=== PATIENT | male | born 1980 | race Caucasian/White ===

== ENCOUNTER 2016-07-23 17:23 | Emergency (ER) | payer OTHER ==
[2016-07-23 17:30] VITALS: BP 164/95; PULSE 66; TEMP 97.6; BMI 29.5
[2016-07-23] MEDS ORDERED: AMOXICILLIN 250 MG CAPSULE PO ONE (18:07)
[2016-07-23] MEDS ORDERED: OXYCODONE/APAP 5/325MG COMBO TABLET PO ONE (18:07)
[2016-07-23] MEDS ORDERED: AMOXICILLIN 250 MG CAPSULE ONE (18:12)
[2016-07-23] MEDS ORDERED: OXYCODONE/APAP 5/325MG COMBO TABLET ONE (18:13)
--- NOTE | 2016-07-23 18:15 | PDOC ---
History of Present Illness - General Chief Complaint: Pain Stated Complaint: ABCESS/TOOTHACHE/NECK PAIN Time Seen by Provider: 07/23/16 17:39 History Source: Patient Exam Limitations: No Limitations - History of Present Illness Initial Comments: 07/23/16 18:08 reoccurring pain to fracture tooth; has dentist appt next Tuesday Timing/Duration: getting worse Severity: moderate Associated Symptoms: denies: cough Past History - Past Medical History Allergies/Adverse Reactions: Allergies Allergy/AdvReac Type Severity Reaction Status Date / Time shellfish derived AdvReac Verified 07/23/16 17:27 Home Medications: Ambulatory Orders NK [No Known Home Medication] 07/23/16 Suicide Attempt (Hx): No Other medical history: NECK AND BACK PAIN - Immunization History Immunization Up to Date: Yes - Psycho/Social/Smoking Cessation Hx Anxiety: No Suicidal Ideation: No Smoking Status: Yes Smoking History: Current some day smoker Have you smoked in the past 12 months: Yes Number of Cigarettes Smoked Daily: 4 If you are a former smoker, when did you quit?: 06/2013 Cigars Per Day: 0 Information on smoking cessation initiated: Yes 'Breaking Loose' booklet given: 07/23/16 Hx Alcohol Use: No Drug/Substance Use Hx: No Substance Use Type: None Review of Systems - Review of Systems Constitutional: Yes: Malaise. No: Chills, Fever HEENTM: Yes: Dental Problems Respiratory: No: Symptoms reported, Cough Cardiac (ROS): No: Symptoms Reported *Physical Exam - Vital Signs Last Vital Signs Temp Pulse Resp BP Pulse Ox 97.6 F 66 18 164/95 100 07/23/16 17:28 07/23/16 17:28 07/23/16 17:28 07/23/16 17:28 07/23/16 17:28 - Physical Exam General Appearance: Yes: Appropriately Dressed. No: Apparent Distress HEENT: positive: TMs Normal, Pharynx Normal, Other (partial fracture #19 with gumline tenderness no fluct.). negative: Tonsillar Exudate Medical Decision Making - Medical Decision Making 07/23/16 18:11 will not prescribe OP narcotics; wiil start with amox and 1 dose percocet here and refer to dental clinic at [facility] *DC/Admit/Observation/Transfer Diagnosis at time of Disposition: Toothache, Dental caries, Dental decay - Discharge Dispostion Disposition: HOME Condition at time of disposition: Stable Admit: No - Patient Instructions Additional Instructions: please see dentist at [facility] on Tuesday clinic; take meds
== END 2016-07-23 18:20 | disposition home or self-care (01) ==
LOC: JERFT 17:23
DX: K02.9 Dental caries, unspecified (principal)
CPT/HCPCS: 99281-25

== ENCOUNTER 2016-10-02 04:39 | Emergency (ER) | payer OTHER ==
[2016-10-02 04:59] VITALS: BP 162/93; PULSE 76; TEMP 97.8; BMI 28.3
[2016-10-02] MEDS ORDERED: FLUORESCEIN NA 1 EA STRIP OS ONE (05:46)
[2016-10-02] MEDS ORDERED: TETRACAINE 0.5% HCL 0.6ML DROPPER.BOTTLE OS ONE (05:46)
[2016-10-02] MEDS ORDERED: FLUORESCEIN NA 1 EA STRIP ONE (05:50)
[2016-10-02] MEDS ORDERED: TETRACAINE 0.5% OPHTH SOLN 2 ML BOTTLE ONE (05:51)
[2016-10-02] MEDS ORDERED: CIPROFLOXACIN 0.3% EYE DROPS 5 ML BOTTLE OS ONE (05:57)
[2016-10-02] MEDS ORDERED: CIPROFLOXACIN HCL 0.3% OPHTH 2.5ML BOTTLE ONE (06:00)
--- NOTE | 2016-10-02 06:00 | PDOC ---
History of Present Illness - General Chief Complaint: Foreign Body (FB) Stated Complaint: FORIEGN BODY/LEFT EYE Time Seen by Provider: 10/02/16 05:46 History Source: Patient Exam Limitations: No Limitations - History of Present Illness Initial Comments: 10/02/16 05:57 36yo Male patient presents to ED c/o foreign body in left eye. Patient states while at work, he was throwing garbage out when dust or metal got into his eye. Patient reports irrigating eye with water for 10 mins but felt no relief. He reports hx: of metal in eye. Tetanus up to date. Patient reports he was wearing protective goggles when incident occurred. Denies any other complaints at this time. Timing/Duration: 1-3 hours Severity: moderate Modifying Factors: improves with: cold therapy Associated Symptoms: denies: denies symptoms, chest pain, cough, diaphoresis, fever/chills, headaches, loss of appetite, malaise, nausea/vomiting, rash, seizure, shortness of breath, syncope, weakness, other Past History - Travel Traveled outside of the country in the last 30 days: No Close contact w/someone who was outside of country & ill: No - Past Medical History Allergies/Adverse Reactions: Allergies Allergy/AdvReac Type Severity Reaction Status Date / Time shellfish derived AdvReac Verified 10/02/16 04:59 Home Medications: Ambulatory Orders NK [No Known Home Medication] 10/02/16 Suicide Attempt (Hx): No Other medical history: Denies - Immunization History Immunization Up to Date: Yes - Psycho/Social/Smoking Cessation Hx Anxiety: No Suicidal Ideation: No Smoking Status: Yes Smoking History: Current some day smoker Have you smoked in the past 12 months: Yes Number of Cigarettes Smoked Daily: 10 If you are a former smoker, when did you quit?: 06/2013 Cigars Per Day: 0 Information on smoking cessation initiated: Yes 'Breaking Loose' booklet given: 07/23/16 Hx Alcohol Use: No Drug/Substance Use Hx: No Substance Use Type: Alcohol Review of Systems - Review of Systems Able to Perform ROS?: Yes Is the patient limited Bhutanese proficient: No Constitutional: No: Chills, Fever HEENTM: Yes: Eye Pain, Blurred Vision, Tearing, Double Vision. No: Cataracts, Nose Congestion, Throat Pain, Throat Swelling, Difficulty Swallowing, Mouth Swelling Respiratory: No: Cough, Shortness of Breath, Stridor, Wheezing Cardiac (ROS): No: Chest Pain, Lightheadedness, Palpitations, Syncope ABD/GI: No: Diarrhea, Nausea, Vomiting All Other Systems: Reviewed and Negative *Physical Exam - Vital Signs Last Vital Signs Temp Pulse Resp BP Pulse Ox 97.8 F 76 19 162/93 100 10/02/16 04:56 10/02/16 04:56 10/02/16 04:56 10/02/16 04:56 10/02/16 04:56 - Physical Exam General Appearance: Yes: Nourished, Appropriately Dressed, Apparent Distress, Mild Distress HEENT: positive: EOMI, HEMA, Normal Voice, Symmetrical, TMs Normal, Pharynx Normal, Other (Injected left conjunctivae. 20/15 right eye, 20/25 left eye.). negative: Pharyngeal Erythema, Tonsillar Exudate, Tonsillar Erythema, TM Bulging , TM Dull, TM Erythema Neck: positive: Trachea midline, Normal Thyroid, Supple. negative: Rigid, Decreased range of motion, Stridor, Lymphadenopathy (R), Lymphadenopathy (L) Respiratory/Chest: positive: Lungs Clear, Normal Breath Sounds. negative: Chest Tender, Respiratory Distress, Accessory Muscle Use, Labored Respiration, Rapid RR Cardiovascular: positive: Regular Rhythm, Regular Rate. negative: Edema, JVD, Murmur Musculoskeletal: positive: Normal Inspection. negative: CVA Tenderness Extremity: positive: Normal Capillary Refill, Normal Inspection, Normal Range of Motion Integumentary: positive: Normal Color, Dry, Warm Neurologic: positive: lawn care specialist II-XII NML intact, Fully Oriented, Alert, Normal Mood/ Affect, Normal Response, Motor Strength 5/5 Procedures - Eye Procedure Alcaine Drops Administered: Yes Eye Irrigated w/ Saline(Mac Lens): Yes Antibiotic Oinment/Drps Admin: left eye Progress: 10/02/16 06:10 Parson lamp revealed no corneal abrasion or pupillary injury or foreign body noted. ED Treatment Course - Medications Given in the ED: ED Medications Discontinued Medications Generic Name Dose Route Start Last Admin Trade Name Freq PRN Reason Stop Dose Admin Fluorescein Sodium 1 ea 10/02/16 05:46 10/02/16 05:54 Fluorets - OS 10/02/16 05:47 1 ea ONCE ONE Administration Tetracaine HCl 2 drop 10/02/16 05:46 10/02/16 05:54 Tetravisc 0.5% Eye Drops - OS 10/02/16 05:47 2 drop ONCE ONE Administration *DC/Admit/Observation/Transfer Diagnosis at time of Disposition: Conjunctivitis Qualifiers: Conjunctivitis type: acute Acute conjunctivitis type: unspecified Laterality: left Qualified Code(s): H10.32 - Unspecified acute conjunctivitis, left eye - Discharge Dispostion Disposition: HOME Condition at time of disposition: Improved Admit: No - Referrals Referrals: Laura Mcdonough MD [Primary Care Provider] - Kory Wan MD [Staff Physician] - - Patient Instructions Printed Discharge Instructions: DI for Conjunctivitis Additional Instructions: FOLLOW UP WITH DR. WAN (OPHTHALMOLOGY) WITHIN 72 HOURS FOR FURTHER EVALUATION. ADMINISTER DROPS FOLLOWS: 2 DROPS EVERY 4 HOURS WHILE AWAKE X 2 DAYS, THEN 1 DROP EVERY 4 HOURS X 3 DAYS WHILE AWAKE. RETURN IF ANY CONCERNS FOR FURTHER EVALUATION. Print Language: KAZAKH - Post Discharge Activity Work/School Note: Back to Work
== END 2016-10-02 06:24 | disposition home or self-care (01) ==
LOC: JER 04:39 → SUPCPDRO 04:39 → JER 06:24
DX: H10.32 Unspecified acute conjunctivitis, left eye (principal)
CPT/HCPCS: 99283-25

== ENCOUNTER 2022-03-16 12:36 | Emergency (ER) | payer OTHER ==
[2022-03-16 13:05] VITALS: BP 135/90; PULSE 61; RESP 18; TEMP 97.7; BMI 30.4
[2022-03-16] MEDS ORDERED: ACETAMINOPHEN 1000 MG/100 ML BAG IVPB ONE (14:16)
[2022-03-16] MEDS ORDERED: ACETAMINOPHEN INJECTION 100 ML IVPB ONE (14:41)
[2022-03-16 14:59] LABS: INR 1.04 (0.83-1.09)
[2022-03-16 15:02] LABS: ACTIVATED PTT 23.6 SECONDS (25.2-36.5)
[2022-03-16 15:25] LABS: BASO % 0.6 % (0-2.0); EOS % 0.3 % (0-4.5); HEMATOCRIT 47.4 % (35.4-49); HEMOGLOBIN 16.1 GM/dL (11.7-16.9); LYMPH % 13.7 % (8-40); MCH 31.9 pg (25.7-33.7); MEAN CELL VOLUME 93.8 fl (80-96); MEAN PLT VOLUME 7.8 fl (7.5-11.1); MONO % 5.5 % (3.8-10.2); NEUT % 79.9 % (42.8-82.8); PLATELET COUNT 275 10^3/uL (134-434); RBC 5.05 M/mm3 (4.00-5.60); RDW 13.1 % (11.9-15.9); WHITE BLOOD COUNT 12.8 K/mm3 (4.0-10.0)
[2022-03-16 15:51] LABS: BLOOD UREA NITROGEN 17.9 mg/dL (7-18); CALCIUM 9.1 mg/dL (8.5-10.1)
[2022-03-16 15:52] LABS: ALBUMIN 4.1 g/dl (3.4-5.0)
[2022-03-16 15:54] LABS: CREATININE 1.1 mg/dL (0.55-1.3)
[2022-03-16 15:56] LABS: BILIRUBIN,TOTAL 1.4 mg/dL (0.2-1)
[2022-03-16] MEDS ORDERED: SODIUM CHLORIDE 0.9% 1000 ML INFUS.BAG IV ONE (16:07)
[2022-03-16 17:34] LABS: PH,URINE 5.5 (5.0-8.0); URINE APPEARANCE CLEAR; URINE BILIRUBIN NEGATIVE (NEGATIVE); URINE COLOR YELLOW; URINE GLUCOSE (UA) NEGATIVE (NEGATIVE); URINE KETONE TRACE (NEGATIVE); URINE LEUK ESTERASE NEGATIVE (NEGATIVE); URINE NITRITE NEGATIVE (NEGATIVE); URINE PROTEIN TRACE (NEGATIVE); URINE UROBILINOGEN 0.2 mg/dL (0.2-1.0)
== END 2022-03-16 20:18 | disposition home or self-care (01) ==
LOC: JER 12:36
PROC: 3E033GC Introduction of Other Therapeutic Substance into Peripheral Vein, Percutaneous Approach (ICD-10-PCS; principal; 2022-03-16)
DX: R55 Syncope and collapse (principal)
CPT/HCPCS: 0241U-QW; 36415; 70450-TC; 71045-TC-FY; 74177-TC; 80053; 81003; 82272; 82962; 83605; 83690; 84484; 85025; 85610; 85730; 86850; 86900; 86901; 87086; 93005; 93010; 99285-25; Q9967

== ENCOUNTER 2023-01-07 08:11 | Day surgery (SDC) | payer OTHER ==
[2023-01-04 13:18] VITALS: BMI 29.2
[2023-01-07] MEDS ORDERED: DEXAMETHASONE SOD PHOSPHATE 4 MG/1 ML VIAL ONE (08:17)
[2023-01-07] MEDS ORDERED: LIDOCAINE HCL/PF 2% SDV 5ML VIAL ONE (08:17)
[2023-01-07] MEDS ORDERED: KETOROLAC TROMETHAMINE 30 MG/1 ML VIAL ONE (08:17)
[2023-01-07] MEDS ORDERED: ONDANSETRON 4 MG/2 ML VIAL ONE (08:17)
[2023-01-07] MEDS ORDERED: ceFAZolin SODIUM 1 GM VIAL ONE (08:17)
[2023-01-07] MEDS ORDERED: PROPOFOL 20 ML ONE (08:18)
[2023-01-07] MEDS ORDERED: MIDAZOLAM HCL 2 MG/2 ML SINGLE DOSE VIAL ONE (08:18)
[2023-01-07] MEDS ORDERED: EPINEPHrine 1:1,000 1,000 MCG/ML ML ONE (08:20)
[2023-01-07] MEDS ORDERED: BUPIVACAINE HCL/PF 2.5 MG/ML - 30 ML VIAL IJ ONE (08:21)
[2023-01-07] MEDS ORDERED: BUPIVACAINE HCL/EPINEPHRINE/PF 30 ML VIAL IJ ONE (08:33)
[2023-01-07] MEDS ORDERED: oxyCODONE HCL 5 MG TABLET PO PRN (10:43)
[2023-01-07] MEDS ORDERED: ONDANSETRON 4 MG/2 ML VIAL IVPUSH PRN (10:43)
[2023-01-07] MEDS ORDERED: LACTATED RINGERS SOLUTION 1,000 ML IV SCH (10:45)
[2023-01-07] MEDS ORDERED: FENTANYL CITRATE/PF 50 MCG/ML VIAL ONE ×2 (10:48→10:59)
[2023-01-07] MEDS ORDERED: ACETAMINOPHEN 1000 MG/100 ML BAG IVPB ONE (10:49)
[2023-01-07] MEDS ORDERED: oxyCODONE HCL 5 MG TABLET ONE (11:06)
[2023-01-07 11:55] VITALS: RESP 16
[2023-01-07 13:18] VITALS: TEMP 97.6
[2023-01-07 13:22] VITALS: BP 127/88; PULSE 62
== END 2023-01-07 12:15 | disposition home or self-care (01) ==
LOC: FASU 08:11
PROVIDERS: ATTEND Orthopaedic Surgery
PROC: 0SBD4ZZ Excision of Left Knee Joint, Percutaneous Endoscopic Approach (ICD-10-PCS; 2023-01-07)
PROC: 0SBD4ZZ Excision of Left Knee Joint, Percutaneous Endoscopic Approach (ICD-10-PCS; principal; 2023-01-07 09:49)
DX: S83.242A Other tear of medial meniscus, current injury, left knee, initial encounter (principal); S83.282A Other tear of lateral meniscus, current injury, left knee, initial encounter; M94.262 Chondromalacia, left knee; M65.9 Synovitis and tenosynovitis, unspecified; X58.XXXA Exposure to other specified factors, initial encounter; Y93.9 Activity, unspecified; Y92.9 Unspecified place or not applicable
CPT/HCPCS: 94760